=== PATIENT | male | born 1985 | race Caucasian/White ===

== ENCOUNTER 2018-11-07 18:10 | Emergency (ER) | payer MEDICAID ==
[2018-11-07 18:11] VITALS: BMI 21.4
[2018-11-07 18:43] VITALS: RESP 18
--- NOTE | 2018-11-07 20:17 | ED PDOC ---
History of Present Illness History of Present Illness: Dwight Briceno is a 33 year old male, with no significant past medical history, who presents to the emergency department complaining of fever, body aches and chills since yesterday upon waking up. He took Motrin at home, last dose yesterday night. He also took x1 tab of Tylenol 500mg x3 hr prior to arrival. He denies any sick contacts, recent travel, ear pain, throat pain, neck pain or stiffness, cough, nausea, vomit, diarrhea, abdominal pain, chest pain, shortness of breath or headache. No further medical complaints. PMD: Dr. Diana HPI: Influenza Time Seen by Provider: 11/07/18 19:23 Chief Complaint: Flu-like Symptoms Chief Complaint (Provider): Fever, chills and body aches History Per: Patient Exam Limitations: no limitations Onset/Duration Of Symptoms: Days (yesterday) Symptoms include: fever, bodyaches. denies: headache, sore throat, cough, nasal congestion, vomiting, diarrhea, chest pain, difficulty breathing Sick Contacts (Context): None Past Medical History Reviewed: Historical Data, Nursing Documentation, Vital Signs Vital Signs: Last Vital Signs Temp 101.7 F H 11/07/18 18:42 Pulse 88 11/07/18 18:42 Resp 18 11/07/18 18:42 BP 111/65 11/07/18 18:42 Pulse Ox 96 11/07/18 18:42 - Medical History PMH: No Chronic Diseases - Surgical History Surgical History: Tonsillectomy - Family History Family History: States: Unknown Family Hx - Social History Current smoker - smoking cessation education provided: No Alcohol: Social Drugs: Denies - Home Medications Home Medications: Ambulatory Orders Medication Instructions Recorded RX: Prednisone 50 mg PO DAILY #4 tablet 08/13/16 Acetaminophen [Acetaminophen 8 650 mg PO Q8 PRN #21 tablet.er 11/07/18 Hour] Oseltamivir Phosphate [Tamiflu] 75 mg PO BID #10 capsule 11/07/18 RX: Ibuprofen [Motrin Tab] 600 mg PO Q6 PRN #20 tab 11/07/18 - Allergies Allergies/Adverse Reactions: Allergies Allergy/AdvReac Type Severity Reaction Status Date / Time No Known Allergies Allergy Verified 11/07/18 18:42 Review of Systems ROS Statement: Except As Marked, All Systems Reviewed And Found Negative Constitutional: Positive for: Fever, Chills, Other (body aches) ENT: Negative for: Ear Pain, Throat Pain Cardiovascular: Negative for: Chest Pain Respiratory: Negative for: Cough, Shortness of Breath Gastrointestinal: Negative for: Nausea, Vomiting, Abdominal Pain, Diarrhea Musculoskeletal: Negative for: Neck Pain (stiffness) Physical Exam - Reviewed Nursing Documentation Reviewed: Yes Vital Signs Reviewed: Yes - Physical Exam Comments: GENERAL APPEARANCE: Patient is awake, alert, oriented x 3, in no acute distress. Resting comfortably. SKIN: Warm, dry; (-) cyanosis, (-) rash. NECK: Supple, FROM (-) stiffness/rigidity (-) lymphadenopathy (-) midline tenderness ENMT: Mucous membranes moist. TMs: (-) erythema (-) bulging. Airway patent: (-) stridor. Pharynx: clear, uvula midline (-) erythema, (-) exudate. NECK: Supple, FROM (-) tenderness, (-) stiffness, (-) meningismus, (-) lymphadenopathy. ABDOMEN AND GI: Soft; (-) tenderness, (-) guarding (-) CVA tenderness. CARDIAC: (-) irregularity RESPIRATORY: lungs clear to auscultation bilaterally (-) rales (-) rhonchi (-) wheezing . Respirations even and nonlabored, speaking in full sentences. EXTREMITIES: (-) deformity NEURO AND PSYCH: Mental status as above; (-) focal findings. Gait: steady. Speech: clear. (-) facial asymmetry (-) aphasia Medical Decision Making Medical Decision Making: Time: 19:20 Initial Impression: Fever, body aches probable influenza Initial Plan: --Motrin tab 600 mg PO --Tamiflu 75 mg PO --Influenza A B --Reevaluation 2129 Influenza: negative. Repeat temp: 98.3 Repeat HR: 70 On re-evaluation, patient reports improvement of symptoms. On exam, patient remains AAOx3, in no acute distress. Vitals stable. Lab/Diagnostic results d/w the patient in great detail. Diagnosis of fever, myalgias, influenza d/w the patient. Based on history, exam and diagnostic results, plan will be for outpatient follow up. Patient instructed to follow-up with pmd / referral provided / the clinic in 1- 2 days without fail. Advised to take medication as prescribed. Return to the emergency room at any time for any new or worsening symptoms. Patient states he fully agrees with and understands discharge instructions. States that he agrees with the plan and disposition. Verbalized and repeated discharge instructions and plan. I have given the patient opportunity to ask any additional questions. Scribe Attestation: Documented by Geoff Chiang, acting as a scribe for Trina Rodriguez PA-C. Provider Scribe Attestation: All medical record entries made by the Scribe were at my direction and personally dictated by me. I have reviewed the chart and agree that the record accurately reflects my personal performance of the history, physical exam, medical decision making, and the department course for this patient. I have also personally directed, reviewed, and agree with the discharge instructions and disposition. - ECG O2 Sat by Pulse Oximetry: 96 (RA) Pulse Ox Interpretation: Normal Disposition - Clinical Impression Clinical Impression: Influenza, Fever, Body aches, Chills - Patient ED Disposition Is Patient to be Admitted: No Counseled Patient/Family Regarding: Studies Performed, Diagnosis, Need For Followup, Rx Given - Disposition Referrals: primary, doctor [Other] Disposition: Routine/Home Disposition Time: 21:30 Condition: STABLE Additional Instructions: The emergency medical care you received today was directed at your acute symptoms. If you were prescribed any medication, please fill it and take as directed. It may take several days for your symptoms to resolve. Return to the Emergency Department if your symptoms worsen, do not improve, or if you have any other problems. Please contact your doctor in 2 days for re-evaluation and follow up / or call one of the physicians/clinics you have been referred to that are listed on the Patient Visit Information form that is included in your discharge packet. Bring any paperwork you were given at discharge with you along with any medications you are taking to your follow up visit. Our treatment cannot replace ongoing medical care by a primary care provider (PCP) outside of the emergency department. Prescriptions: Acetaminophen [Acetaminophen 8 Hour] 650 mg PO Q8 PRN #21 tablet.er PRN Reason: fever/pain RX: Ibuprofen [Motrin Tab] 600 mg PO Q6 PRN #20 tab PRN Reason: fever/pain Oseltamivir Phosphate [Tamiflu] 75 mg PO BID #10 capsule Instructions: Flu, Adult (DC), Muscle and Bone Pain (DC), Fever, Adult (DC), When to Worry About a Fever Forms: [employer] (Kyrgyz) Print Language: OMANI - POA Present On Arrival: None Results - Lab Results Lab Results: 11/07/18 20:17 Influenza Typ A,B (EIA) Negative for flu a/b
[2018-11-07 21:54] VITALS: BP 110/59; PULSE 70; TEMP 98.3
[2018-11-07 21:55] VITALS: O2SAT 96
== END 2018-11-07 22:00 | disposition home or self-care (01) ==
LOC: H.ER 18:10
DX: J11.1 Influenza due to unidentified influenza virus with other respiratory manifestations (principal)